=== PATIENT | male | born 2000 | race Caucasian/White ===

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

== ENCOUNTER 2020-05-17 12:30 | Outpatient (RCR) | payer OTHER, SELFPAY ==
--- NOTE | 2020-05-06 18:41 | HP.PTEVAL_ITS ---
Patient's Visit Information MAGDIEL DEL TORO is a 19 year old M referred to Physical Therapy by ILENE CEDILLO with a diagnosis of LEFT SHOULDER PAIN. Date of Evaluation: 05/06/20 Physical Therapist: Luis Antonio Black, PT, Cert MDT, OCS - Visit Plan Frequency: 2x /Week Duration: 4 Weeks Plan: PT INTERENTIONS MODALTIES, RTC/SCAPULAR EX'S,POSTURAL EX'S,ISOMTRICS NEEDED - Subjective This 19 y/o male presents to physical therapy with left shoulder pain. Pateint had incidous onset of left shoulder pain from overuse from work . Pain is located global. Seen DR did x-rays which are negative and recommended anti- inflammtory. Aggraveting factors sleeping on left ,raising arm OH ,lifting OH and any activities above 90 degrees, Patient has some parathesia/tingling in arm with lifting. Patient has no h/o trauma. Patient symptoms affecrs ADL'S and housework tasks and job demands. Patient symptoms affects QOL. SOCIAL: SINGLE. VOCATION: [employer] - Pain Left Shoulder Pain Intensity (Out of 10): 9 Pain Intensity Range: 10 - Objective POSTURE: rounded shoulders head foward. PALPATION: scapular /middle traps. NEURO: intact. AROM: shoulder flexion 110 degrees,abduction 95 degrees,ER 80 degrees,IR iliac crest. MMT: infraspinatous 4-/5.supraspinatous 4-/5,pain ,subscapularis 4/5,deltoid 4-/5 pain. CERVICAL ROM: WFL - Special Tests L Shoulder External Rotation Lag Test - RC Tear: Negative L Shoulder Supine Impingement Test - RC Tear: Negative L Shoulder Lift Off Test - Subscapular Tear: Negative L Shoulder Drop Sign - IS Test: Negative L Shoulder Empty Can - SS: Positive L Shoulder Belly Press - SupScap: Negative L Shoulder Neer - Impingement: Positive L Shoulder [place] - Impingement: Positive - Goals Goal 1:: Patient to be I with HEP Goal Time Frame: 4-6 Weeks Goal 2:: Patient to decrease left shoulder pain by 50% or > to improve function with job demnads. Goal Time Frame: 4-6 Weeks Goal 3:: Patient to increase AROM shoulder symmtrical left compared to right. Goal Time Frame: 4-6 Weeks Goal 4:: Patient to increase strength left RTC nad deltoid to 4/5 to improve function. Goal Time Frame: 4-6 Weeks Goal 5:: Patient to increase shoulder quick dash by 5 points or >to improve QOL. Goal Time Frame: 4-6 Weeks - Rehabilitation Potential Physical Therapy Diagnosis: This patient has left shoulder pain with possible RTC involvement with pain and weakness with decrease ROM impairs ADL's and OH activties with function Rehabilitation Potential: Good - Anticipated Interventions Patient/Client Instruction: Educate patient on: Condition, Plan of Care For the Purpose of:: To decrease pain, To increase ROM, To improve muscle performance and motor function, To improve ability to perform ADL's, To increase tolerance to activity/condition/position, To improve performance and independence with ADL's, To improve ability of physical actions for home/community/work/leisure, To improve health of tissue, To decrease soft tissue restriction, To increase flexibility/ROM, To improve ability to perform tasks related to life management Therapeutic Exercise to Include: Strength training, Postural training, Flexibilty training, Active ROM, Scapular Strength/Stabilization Comment: RTC For the Purpose of:: To decrease pain, To increase ROM, To improve muscle performance and motor function, To improve ability to perform ADL's, To increase tolerance to activity/condition/position, To improve ability of physical actions for home/community/work/leisure, To improve health of tissue, To decrease soft tissue restriction, To increase flexibility/ROM, To reduce risk of recurrence, To improve ability to perform tasks related to life management TENS: Yes IF ES: Yes Cryotherapy (ice pack, ice massage): Yes Thermo therapy (hot pack): Yes Ultrasound (thermal/non thermal): Yes For the Purpose of:: To decrease pain, To decrease swelling/inflammation, To increase ROM, To improve nutrient delivery to tissue, To increase oxygenation perfusion, To improve health of tissue, To decrease soft tissue restriction Thank you for the opportunity to evaluate your patient. For Medicare and Medicare HMO plans, please review the plan of care and approve it. It will need to be FAXED BACK to us at [phone] for Medicare purposes. For Medicare only, by signing this I certify the plan of care. Please let me know if there are questions or concerns regarding this plan of care. Physician Signature: Date:
--- NOTE | 2020-08-14 09:59 | HP.PT.NRP ---
MAGDIEL DEL TORO was seen in my office for initial evaluation on 05/06/20. The following Plan of Care was established for this patient: Initial Frequency: 2x /Week Initial Duration: 4 Weeks Patient/Client Instruction: Educate patient on: Condition, Plan of Care For the Purpose of:: To decrease pain, To increase ROM, To improve muscle performance and motor function, To improve ability to perform ADL's, To increase tolerance to activity/condition/position, To improve performance and independence with ADL's, To improve ability of physical actions for home/community/work/leisure, To improve health of tissue, To decrease soft tissue restriction, To increase flexibility/ROM, To improve ability to perform tasks related to life management Therapeutic Exercise to Include: Strength training, Postural training, Flexibilty training, Active ROM, Scapular Strength/Stabilization For the Purpose of:: To decrease pain, To increase ROM, To improve muscle performance and motor function, To improve ability to perform ADL's, To increase tolerance to activity/condition/position, To improve ability of physical actions for home/community/work/leisure, To improve health of tissue, To decrease soft tissue restriction, To increase flexibility/ROM, To reduce risk of recurrence, To improve ability to perform tasks related to life management TENS: Yes IF ES: Yes Cryotherapy (ice pack, ice massage): Yes Thermo therapy (hot pack): Yes Ultrasound (thermal/non thermal): Yes For the Purpose of:: To decrease pain, To decrease swelling/inflammation, To increase ROM, To improve nutrient delivery to tissue, To increase oxygenation perfusion, To improve health of tissue, To decrease soft tissue restriction This patient was last seen in our office . Pertinent comments regarding their Physical therapy will appear below: Patient was seen for PT for left shoulder pain for modalties ,ROM ,strength . Patient conts have pain thus RTD At this point I will be discontinuing this patient from physical therapy. I would be happy to see this patient again in the future if found appropriate by the physician. Thank you! Luis Antonio Black, PT, Cert MDT, OCS
== END 2020-05-17 19:00 | disposition home or self-care (01) ==
LOC: PT 12:30
DX: M25.512 Pain in left shoulder (principal)
CPT/HCPCS: 97014; 97110; 97161; G0283